=== PATIENT | male | born 2000 | race Hispanic/Latino ===

== ENCOUNTER 2018-12-15 09:17 | Emergency (ER) | payer BC ==
[~2018-12-15] VITALS: Ht 160 cm; Wt 83.9 kg
[2018-12-15] MEDS ORDERED: AUGMENTIN 875-1 EACH PO (10:46)
[2018-12-15] MEDS ORDERED: KETOROLAC TROME10 MG PO (10:46)
[2018-12-15] MEDS ORDERED: KETOROLAC TROMETHAMINE 60 MG/2 ML VIAL IM ONE (11:00)
[2018-12-15] MEDS ORDERED: AMOXICILLIN/CLAVULANATE K 500 MG TAB PO ONE (11:30)
[2018-12-15] MEDS ORDERED: PREDNISONE 20 MG TAB PO ONE (11:30)
== END 2018-12-15 11:26 | disposition home or self-care (01) ==
LOC: ER 09:17
DX: J02.0 Streptococcal pharyngitis (principal)
CPT/HCPCS: 83518; 87070; 99283; J1885; J7512